=== PATIENT | male | born 1970 | race American Indian/Alaskan Native ===

== ENCOUNTER 2017-09-20 14:14 | Outpatient (CLI) | payer MEDICARE ==
--- NOTE | 2017-09-22 13:41 | Vascular Lab Report ---
RIGHT UPPER EXTREMITY VENOUS DUPLEX: REASON FOR EXAM: Deep venous thrombosis COMMENTS ON THE RIGHT: All arm veins visualized are freely compressible without evidence of internal echogenicity. The subclavian and internal jugular veins are free of thrombus. Flow is spontaneous and phasic throughout. COMMENTS ON THE LEFT: A limited study of the jugular and subclavian veins shows no evidence of thrombus. IMPRESSION: No evidence of acute or chronic deep venous thrombosis in the right upper extremity.
== END 2017-09-20 14:15 | disposition home or self-care (01) ==
LOC: VAS 14:14
PROVIDERS: ATTEND Internal Medicine
DX: I82.621 Acute embolism and thrombosis of deep veins of right upper extremity (principal); I11.0 Hypertensive heart disease with heart failure; I50.9 Heart failure, unspecified

== ENCOUNTER 2018-07-21 23:20 | Emergency (ER) | payer OTHER, MEDICARE ==
[2018-07-22] MEDS ORDERED: PERCOCET 5/325 PO STA (04:09)
[2018-07-22] MEDS ORDERED: DELTASONE PO STA (04:12)
--- NOTE | 2018-07-22 04:20 | Emergency Department Report ---
ED General Adult HPI - General Chief complaint: Shoulder Injury Stated complaint: LEFT SHOULDER PAIN Time Seen by Provider: 07/22/18 02:56 Source: patient Mode of arrival: Ambulatory Limitations: No Limitations - History of Present Illness Initial comments: 47-year-old male presents much department complaining of sleeping awkwardly and within of left shoulder pain and a dull throbbing fashion about 2 weeks ago, has continued to aggravate him since the onset. He tried to take some Tylenol but that yielded minimal response. He is a dialysis patient so is unable to use an anti-inflammatory condition, much department for pain control -: week(s) Location: upper extremity Radiation: non-radiation Severity scale (0 -10): 6 Quality: aching Consistency: constant Improves with: none Worsens with: none Associated Symptoms: denies: confusion, chest pain, diaphoresis, headaches, loss of appetite, malaise, nausea/vomiting, shortness of breath, syncope, weakness - Related Data Home Medications Medication Instructions Recorded Confirmed Last Taken Cinacalcet HCl [Sensipar] 60 mg PO DAILY 05/20/13 11/12/14 08/15/14 21:00 Digoxin [Lanoxin] 0.125 mg PO 3XW 05/20/13 11/12/14 08/13/14 09:00 Sevelamer Carbonate [Renvela] 800 mg PO TIDWM 05/20/13 11/12/14 08/15/14 21:00 Warfarin [Coumadin] 5 mg PO 3XW 05/20/13 11/12/14 08/09/14 B Complex 11/Folic/C/Biot/Zinc 1 tab PO DAILY 08/14/14 11/12/14 08/15/14 09:00 [Dialyvite with Zinc Tablet] Cholecalciferol (Vitamin D3) 2,000 unit PO DAILY 08/14/14 11/12/14 08/15/14 09:00 [Vitamin D-3] Clonidine HCl [Catapres] 0.3 mg PO TID 08/14/14 11/12/14 08/15/14 21:00 Gemfibrozil [Lopid] 600 mg PO DAILY 08/14/14 11/12/14 08/15/14 21:00 Simvastatin 20 mg PO QDAY 08/14/14 11/12/14 08/15/14 21:30 Sodium Bicarbonate 650 mg PO TID 08/14/14 11/12/14 08/15/14 09:00 Zolpidem Tartrate [Ambien] 1 tab PO QHS 08/14/14 11/12/14 08/15/14 21:30 dilTIAZem [Cardizem] 30 mg PO DAILY 08/14/14 11/12/14 08/15/14 09:00 Warfarin [Coumadin] 7.5 mg PO 3XW 11/12/14 11/12/14 Unknown Previous Rx's Medication Instructions Recorded Last Taken Type Sulfamethoxazole/Trimethoprim 1 each PO BID #20 tablet 11/04/15 Unknown Rx [Bactrim DS TAB] oxyCODONE /ACETAMINOPHEN [Percocet 1 tab PO Q6HR PRN #20 tablet 11/04/15 Unknown Rx 5/325] Acetaminophen 500 mg PO Q8H PRN #12 tablet 03/31/18 Unknown Rx Cetirizine HCl [ZyrTEC] 10 mg PO QAM 14 Days #14 capsule 03/31/18 Unknown Rx Fluticasone [Flonase] 1 spray NS QDAY 14 Days #1 bottle 03/31/18 Unknown Rx ALBUTEROL Inhaler (OR & NICU) 2 puff IH QID PRN #1 inhalation 04/09/18 Unknown Rx [ProAir HFA Inhaler] Benzonatate [Tessalon Perles] 100 mg PO Q8HR PRN #20 capsule 04/09/18 Unknown Rx HYDROcodone/APAP 5-325 [Craig 1 each PO Q6HR PRN #20 tablet 04/22/18 Unknown Rx 5/325] Methocarbamol [Robaxin-750] 750 mg PO TID #15 tablet 07/22/18 Unknown Rx predniSONE [Prednisone] 50 mg PO DAILY #7 tablet 07/22/18 Unknown Rx Allergies Allergy/AdvReac Type Severity Reaction Status Date / Time sulfamethoxazole Allergy Swelling Verified 03/31/18 12:24 [From Bactrim] trimethoprim [From Bactrim] Allergy Swelling Verified 03/31/18 12:24 ED Review of Systems ROS: Stated complaint: LEFT SHOULDER PAIN Other details as noted in HPI Constitutional: denies: chills, fever Eyes: denies: eye pain, eye discharge, vision change ENT: denies: ear pain, throat pain Respiratory: denies: cough, shortness of breath, wheezing Cardiovascular: denies: chest pain, palpitations Endocrine: no symptoms reported Gastrointestinal: denies: abdominal pain, nausea, diarrhea Genitourinary: denies: urgency, dysuria Musculoskeletal: joint swelling, arthralgia. denies: back pain Skin: denies: rash, lesions Neurological: denies: headache, weakness, paresthesias Psychiatric: denies: anxiety, depression Hematological/Lymphatic: denies: easy bleeding, easy bruising ED Past Medical Hx - Past Medical History Hx Hypertension: Yes Hx Congestive Heart Failure: Yes Hx Renal Disease: Yes (kidney transplant) Additional medical history: AFIB - Surgical History Additional Surgical History: left leg. Fistula left arm. kidney transplant 2017 - Social History Smoking Status: Former Smoker Substance Use Type: None - Medications Home Medications: Home Medications Medication Instructions Recorded Confirmed Last Taken Type Cinacalcet HCl [Sensipar] 60 mg PO DAILY 05/20/13 11/12/14 08/15/14 21:00 History Digoxin [Lanoxin] 0.125 mg PO 3XW 05/20/13 11/12/14 08/13/14 09:00 History Sevelamer Carbonate [Renvela] 800 mg PO TIDWM 05/20/13 11/12/14 08/15/14 21:00 History Warfarin [Coumadin] 5 mg PO 3XW 05/20/13 11/12/14 08/09/14 History B Complex 11/Folic/C/Biot/Zinc 1 tab PO DAILY 08/14/14 11/12/14 08/15/14 09:00 History [Dialyvite with Zinc Tablet] Cholecalciferol (Vitamin D3) 2,000 unit PO DAILY 08/14/14 11/12/14 08/15/14 09:00 History [Vitamin D-3] Clonidine HCl [Catapres] 0.3 mg PO TID 08/14/14 11/12/14 08/15/14 21:00 History Gemfibrozil [Lopid] 600 mg PO DAILY 08/14/14 11/12/14 08/15/14 21:00 History Simvastatin 20 mg PO QDAY 08/14/14 11/12/14 08/15/14 21:30 History Sodium Bicarbonate 650 mg PO TID 08/14/14 11/12/14 08/15/14 09:00 History Zolpidem Tartrate [Ambien] 1 tab PO QHS 08/14/14 11/12/14 08/15/14 21:30 History dilTIAZem [Cardizem] 30 mg PO DAILY 08/14/14 11/12/14 08/15/14 09:00 History Warfarin [Coumadin] 7.5 mg PO 3XW 11/12/14 11/12/14 Unknown History Sulfamethoxazole/Trimethoprim 1 each PO BID #20 tablet 11/04/15 Unknown Rx [Bactrim DS TAB] oxyCODONE /ACETAMINOPHEN [Percocet 1 tab PO Q6HR PRN #20 tablet 11/04/15 Unknown Rx 5/325] Acetaminophen 500 mg PO Q8H PRN #12 tablet 03/31/18 Unknown Rx Cetirizine HCl [ZyrTEC] 10 mg PO QAM 14 Days #14 capsule 03/31/18 Unknown Rx Fluticasone [Flonase] 1 spray NS QDAY 14 Days #1 bottle 03/31/18 Unknown Rx ALBUTEROL Inhaler (OR & NICU) 2 puff IH QID PRN #1 inhalation 04/09/18 Unknown Rx [ProAir HFA Inhaler] Benzonatate [Tessalon Perles] 100 mg PO Q8HR PRN #20 capsule 04/09/18 Unknown Rx HYDROcodone/APAP 5-325 [Craig 1 each PO Q6HR PRN #20 tablet 04/22/18 Unknown Rx 5/325] Methocarbamol [Robaxin-750] 750 mg PO TID #15 tablet 07/22/18 Unknown Rx predniSONE [Prednisone] 50 mg PO DAILY #7 tablet 07/22/18 Unknown Rx ED Physical Exam - General Limitations: No Limitations General appearance: alert, in no apparent distress - Head Head exam: Present: atraumatic, normocephalic - Eye Eye exam: Present: normal appearance - ENT ENT exam: Present: mucous membranes moist - Neck Neck exam: Present: normal inspection - Respiratory Respiratory exam: Present: normal lung sounds bilaterally. Absent: respiratory distress - Cardiovascular Cardiovascular Exam: Present: regular rate, normal rhythm. Absent: systolic murmur, diastolic murmur, rubs, gallop - GI/Abdominal GI/Abdominal exam: Present: soft, normal bowel sounds - Rectal Rectal exam: Present: deferred - Extremities Exam Extremities exam: Present: normal inspection - Back Exam Back exam: Present: normal inspection - Neurological Exam Neurological exam: Present: alert, oriented X3 - Psychiatric Psychiatric exam: Present: normal affect, normal mood - Skin Skin exam: Present: warm, dry, intact, normal color. Absent: rash Critical care attestation.: If time is entered above; I have spent that time in minutes in the direct care of this critically ill patient, excluding procedure time. ED Disposition Clinical Impression: Shoulder pain, left Disposition: DC-01 TO HOME OR SELFCARE Is pt being admited?: No Does the pt Need Aspirin: No Condition: Stable Instructions: Shoulder Sprain (ED), Arthralgia (ED) Prescriptions: predniSONE [Prednisone] 50 mg PO DAILY #7 tablet Methocarbamol [Robaxin-750] 750 mg PO TID #15 tablet Referrals: HANNAH CARLTON MD [Primary Care Provider] - 3-5 Days
== END 2018-07-22 04:51 | disposition home or self-care (01) ==
LOC: ED 23:20
DX: M25.512 Pain in left shoulder (principal); I11.0 Hypertensive heart disease with heart failure; I48.91 Unspecified atrial fibrillation; Z87.891 Personal history of nicotine dependence; Z88.2 Allergy status to sulfonamides
CPT/HCPCS: 99282; J7512

== ENCOUNTER 2021-09-26 11:08 | Emergency (ER) | payer OTHER, MEDICARE ==
--- NOTE | 2021-09-26 16:44 | Vascular Lab Report ---
DUPLEX DOPPLER LOWER EXTREMITY VEINS, LEFT INDICATION / CLINICAL INFORMATION: pain and swelling. TECHNIQUE: Duplex doppler imaging was performed through the veins of the left lower extremity using venous compr ession and other maneuvers. COMPARISON: None available. FINDINGS: LEFT COMMON FEMORAL VEIN: Negative. LEFT FEMORAL VEIN: Negative. LEFT POPLITEAL VEIN: Negative. LEFT CALF VEINS: Negative. ADDITIONAL FINDINGS: 2.8 cm Emanuel cyst in the left popliteal fossa. IMPRESSION: 1. No sonographic evidence for DVT in the left lower extremity. Signer Name: Sachin Vega MD Signed: 09/26/2021 4:40 PM Workstation Name: [id number]
[2021-09-26 18:05] VITALS: BP 138/96
== END 2021-09-26 18:54 | disposition home or self-care (01) ==
LOC: ED 11:08
DX: M79.673 Pain in unspecified foot (principal); Z53.21 Procedure and treatment not carried out due to patient leaving prior to being seen by health care provider
CPT/HCPCS: 82962; 99283